=== PATIENT | male | born 2005 | race Two or more races ===

== ENCOUNTER 2023-04-09 18:29 | Emergency (ER) | payer OTHER ==
[~2023-04-09] VITALS: Ht 165.1 cm; Wt 66.7 kg
[2023-04-09] MEDS ORDERED: HYDROCODON-ACE1 EA10 PO (20:36)
[2023-04-09 20:45] VITALS: BP 115/79
== END 2023-04-09 20:45 | disposition home or self-care (01) ==
LOC: ED 18:29
DX: S43.085A Other dislocation of left shoulder joint, initial encounter (principal); X58.XXXA Exposure to other specified factors, initial encounter; Y93.66 Activity, soccer
CPT/HCPCS: 23650; 73030; 99152; 99153; 99283-25; A9270; J2704; J7030